=== PATIENT | female | born 1960 | race Caucasian/White ===

== ENCOUNTER 2018-06-13 18:50 | Emergency (ER) | payer OTHER ==
[~2018-06-13] VITALS: Ht 160 cm; Wt 61.2 kg
[~2018-06-13 18:50] MED LIST: ACYCLOVIR 400400 MG; ADDERALL 30 MG30 MG; ALPRAZOLAM; CARISOPRODOL 3350 MG PO; CIPRO500 MG PO; CLEOCIN HCL150 MG PO; COLACE100 MG PO; DICLOFENAC SODI75 M1; ESTRACE1 MG; GLYCOLAX17 GM PO; KEFLEX250 MG PO; MEDROLDOSEPACK PO; MUPIROCIN15 GM TP; NEXIUM; NORCO 10-325 T1 EACH; NORCO 5-325 TA1 EACH PO; NYSTATIN-TRIAMC15 GM; OXYCONTIN80 MG PO; PENICILLIN V P500 MG PO; PERCOCET 5-3251 EACH PO; PHENERGAN 25 MG25 M1; PREDNISONE 10 M10 M1 PO; PREDNISONE 20 M20 MG PO; PREMARIN0.625 MG; PROAIR HFA8.5 GM; TRAMADOL 50 MG50 MG PO; VICODIN 5-5001 EACH PO
[2018-06-13 21:50] VITALS: BP 150/109
== END 2018-06-13 21:51 | disposition home or self-care (01) ==
LOC: ER 18:50
DX: S16.1XXA Strain of muscle, fascia and tendon at neck level, initial encounter (principal); M79.601 Pain in right arm; F17.210 Nicotine dependence, cigarettes, uncomplicated; K21.9 Gastro-esophageal reflux disease without esophagitis; I10 Essential (primary) hypertension; M19.90 Unspecified osteoarthritis, unspecified site; Z98.890 Other specified postprocedural states; Z90.710 Acquired absence of both cervix and uterus; W22.8XXA Striking against or struck by other objects, initial encounter; Y92.89 Other specified places as the place of occurrence of the external cause; Y93.89 Activity, other specified; Y99.8 Other external cause status